=== PATIENT | female | born 1975 | race African-American/Black ===

== ENCOUNTER → 2017-11-11 | Outpatient (CLI) | payer OTHER | END | disposition home or self-care (01) | LOC: KCIC MAMMO 12:42 | DX: Z12.31 Encounter for screening mammogram for malignant neoplasm of breast (principal) | CPT/HCPCS: 77067 ==

== ENCOUNTER → 2018-11-24 | Outpatient (CLI) | payer OTHER ==
--- NOTE | 2018-11-24 15:46 | KCIC ---
Bilateral digital screening mammograms: Reason for examination: Routine screening. Comparison is made to previous study dated 11/11/2017. Interpretation was made with the benefit of CAD. The skin and nipples show no abnormalities. No abnormal axillary lymph nodes are seen. The breast parenchyma is heterogeneously dense. (Breast density: Category C.) There are no dominant masses, suspicious calcifications or architectural distortion. Impression: No evidence of malignancy. Recommend routine screening. Your patient's mammogram demonstrates that she has dense breast tissue (breast density category C or D), which could hide abnormalities, and if she has other risk factors for breast cancer that have been identified, she might benefit from supplemental screening tests that may be suggested by you as her ordering physician. Dense breast tissue, in and of itself, is a relatively common condition. Therefore, this information is not provided to cause undue concern, but rather to raise your awareness and to promote discussion with your patient regarding the presence of other risk factors, in addition to dense breast tissue. Your patient's mammography results will be sent to her. BI-RAD Category 1: Negative. "Our facility is accredited by the [employer]ammography [employer]." This patient's information has been entered into a reminder system for the patient to be notified with the results of her examination and a target date for the next mammogram. Electronically signed by: Jossy Wyman MD (11/24/2018 3:42 PM) [id number]
== END | disposition home or self-care (01) ==
LOC: KCIC MAMMO 11:28
PROVIDERS: ATTEND Obstetrics & Gynecology
DX: Z12.31 Encounter for screening mammogram for malignant neoplasm of breast (principal)
CPT/HCPCS: 77067

== ENCOUNTER → 2019-12-02 | Outpatient (CLI) | payer OTHER ==
--- NOTE | 2019-12-02 10:21 | KCIC ---
Bilateral digital screening mammograms with 3-D tomosynthesis: Reason for examination: Routine screening. Comparison is made to previous studies dated 11/24/2018 and 11/11/2017. Bilateral mammograms in CC and oblique projections were obtained with 2-D imaging and 3-D tomosynthesis imaging on a Siemens Inspiration unit and reviewed on the workstation. Interpretation was made with the benefit of CAD. The skin and nipples show no abnormalities. No abnormal axillary lymph nodes are seen. The breast parenchyma is heterogeneously dense especially in the upper outer quadrants. (Breast density: Category C.) There are no dominant masses, suspicious calcifications or architectural distortion. Impression: No evidence of malignancy. Recommend routine screening. Your patient's mammogram demonstrates that she has dense breast tissue (breast density category C or D), which could hide abnormalities, and if she has other risk factors for breast cancer that have been identified, she might benefit from supplemental screening tests that may be suggested by you as her ordering physician. Dense breast tissue, in and of itself, is a relatively common condition. Therefore, this information is not provided to cause undue concern, but rather to raise your awareness and to promote discussion with your patient regarding the presence of other risk factors, in addition to dense breast tissue. Your patient's mammography results will be sent to her. BI-RAD Category 1: Negative. "Our facility is accredited by the [employer] Mammography [employer]." This patient's information has been entered into a reminder system for the patient to be notified with the results of her examination and a target date for the next mammogram. Electronically signed by: Jossy Wyman MD (12/02/2019 10:18 AM) [id number]
== END | disposition home or self-care (01) ==
LOC: KCIC MAMMO 08:04
PROVIDERS: ATTEND Family Medicine
DX: Z12.31 Encounter for screening mammogram for malignant neoplasm of breast (principal)
CPT/HCPCS: 77063; 77067

== ENCOUNTER → 2020-12-19 | Outpatient (CLI) | payer OTHER ==
--- NOTE | 2020-12-19 13:55 | KCIC ---
Bilateral digital screening mammograms with 3-D tomosynthesis: Reason for examination: Routine screening. Second Covid vaccine 3 days ago in the left arm. Comparison is made to previous studies dated back to 11/11/2017. Bilateral mammograms in CC and oblique projections were obtained with 2-D imaging and 3-D tomosynthes is imaging on a Siemens Inspiration unit and reviewed on the workstation. Interpretation was made wit h the benefit of CAD. The skin and nipples show no abnormalities. No abnormal axillary lymph nodes are seen. The breast par enchyma is heterogeneously dense. (Breast density: Category C.) There is nodularity posterior superio rly 17 cm from the nipple in the left breast on oblique view. This could represent an intramammary ly mph node. There also appears to be a small nodule posterior laterally probably a 4:00 C position of t he left breast approximately 14 cm from the nipple and 7.5 mm in size Further evaluation with ultraso und is recommended. There are no other dominant masses, suspicious calcifications or architectural di stortion. Impression: Nodularity posterior superiorly 17 cm from the nipple in the left breast seen on oblique view. 7.5 mm nodule at the 4:00 C position approximately 14 cm from the nipple in the left breast. Recommend furt her evaluation with ultrasound. Your patient's mammogram demonstrates that she has dense breast tissue (breast density category C or D), which could hide abnormalities, and if she has other risk factors for breast cancer that have bee n identified, she might benefit from supplemental screening tests that may be suggested by you as her ordering physician. Dense breast tissue, in and of itself, is a relatively common condition. Therefo re, this information is not provided to cause undue concern, but rather to raise your awareness and t o promote discussion with your patient regarding the presence of other risk factors, in addition to d ense breast tissue. Your patient's mammography results will be sent to her. BI-RAD Category 0: Incomplete. Needs additional imaging evaluation. "Our facility is accredited by the [employer]amm[employer]." This patient's information has been entered into a reminder system for the patient to be notified wit h the results of her examination and a target date for the next mammogram. Electronically signed by: Jossy Wyman MD (12/19/2020 1:52 PM) [place] [id number]
== END ==
LOC: KCIC MAMMO 08:59
PROVIDERS: ATTEND Family Medicine
DX: Z12.31 Encounter for screening mammogram for malignant neoplasm of breast (principal)
CPT/HCPCS: 77063; 77067

== ENCOUNTER → 2020-12-27 | Outpatient (CLI) | payer OTHER ==
--- NOTE | 2020-12-27 14:01 | KCIC ---
US BREAST LT Clinical Indication: Reason: CALLBACK LT BREAST. Patient recently received second Covid vaccination. Comparison: Bilateral mammogram December 19, 2020 and prior years. TECHNIQUE: Real-time ultrasound imaging of the left breast and axilla is performed. Findings: In the 4:00 position 10 cm from the nipple there is a 7 mm hypoechoic nodule that could be a fibroade noma or complicated cyst or intramammary lymph node. At the 2:00 and 3:00 positions of the breast at posterior depth the tissues are extremely dense and heterogeneous. No solid mass is identified. There are reactive appearing axillary lymph nodes. IMPRESSION: 1. There is a small hypoechoic nodule at the 4:00 position 10 cm from the nipple that probably accou nts for the mammogram finding and may be a fibroadenoma or complicated cyst. 2. There are reactive appearing axillary lymph nodes. 3. Recommend six-month follow-up ultrasound. 4. BI-RADS Category 3, probably benign. Electronically signed by: Louie Ott MD (12/27/2020 1:58 PM) [email or web address]
== END ==
LOC: KCIC US 12:59
PROVIDERS: ATTEND Family Medicine
DX: R92.2 Inconclusive mammogram (principal); N63.23 Unspecified lump in the left breast, lower outer quadrant
CPT/HCPCS: 76641

== ENCOUNTER → 2021-06-27 | Outpatient (CLI) | payer OTHER ==
[2021-02-24 15:04] VITALS: BP 148/84
[~2021-06-27] MED LIST: CITA10TA4 PO; HYDR25TA PO; TRAZ-118 PO
--- NOTE | 2021-06-27 08:51 | KCIC ---
Left breast ultrasound: Reason for examination: Follow-up nodules. Comparison is made to previous ultrasound examination dated 12/27/2020 and previous mammographic exam dated 12/19/2020. At the 1:30 position 17 cm from the nipple, there is a intramammary lymph node measuring approximatel y 8.3 mm in greatest dimension. At the 4:00 position 10 cm from the nipple, there continues to be a s mall 7.9 mm hypoechoic circumscribed lesion in parallel orientation consistent with fibroadenoma whic h shows no significant change. No new cystic or solid nodules are seen. IMPRESSION: Intramammary lymph node at the 1:30 position 17 cm from the nipple. Small nodule probably representing a fibroadenoma at the 4:00 position 10 cm from the nipple. Recommend continued 6 month follow-up for one year stability which can be performed at the time of bi lateral mammograms. BI-RADS Category 3: Probably Benign. "Our facility is accredited by the [employer] Mammography Program." This patient's information has been entered into a reminder system for the patient to be notified wit h the results of her examination and a target date for the next mammogram. Electronically signed by: Jossy Wyman MD (06/27/2021 8:49 AM) [email or web address]
== END ==
LOC: KCIC US 08:01
PROVIDERS: ATTEND Internal Medicine
DX: N63.21 Unspecified lump in the left breast, upper outer quadrant (principal); R92.2 Inconclusive mammogram
CPT/HCPCS: 76641

== ENCOUNTER → 2022-02-06 | Outpatient (CLI) | payer OTHER ==
[2021-02-24 15:04] VITALS: BP 148/84
[~2022-02-06] MED LIST changes: -CITA10TA4 PO; +CITA10TA5 PO
--- NOTE | 2022-02-06 18:29 | KCIC ---
Bilateral diagnostic digital mammograms with 3-D tomosynthesis: Reason for examination: Follow-up nodules. Comparison is made to previous studies dated back to 11/11/2017. Bilateral mammograms in CC and oblique projections were obtained with 2-D imaging and 3-D tomosynthes is imaging on a Siemens Inspiration unit and reviewed on the workstation. Interpretation was made wit h the benefit of CAD. The skin and nipples show no abnormalities. No abnormal axillary lymph nodes are seen. The breast par enchyma is heterogeneously dense. (Breast density: Category C.) There continues to be some nodular as ymmetry posterior superiorly in the left breast on oblique view which is stable. There are no new dom inant masses, suspicious calcifications or architectural distortion. Impression: No evidence of malignancy. Ultrasound to follow. Your patient's mammogram demonstrates that she has dense breast tissue (breast density category C or D), which could hide abnormalities, and if she has other risk factors for breast cancer that have bee n identified, she might benefit from supplemental screening tests that may be suggested by you as her ordering physician. Dense breast tissue, in and of itself, is a relatively common condition. Therefo re, this information is not provided to cause undue concern, but rather to raise your awareness and t o promote discussion with your patient regarding the presence of other risk factors, in addition to d ense breast tissue. Your patient's mammography results will be sent to her. BI-RAD Category 0: Incomplete. Needs additional imaging evaluation. Left breast ultrasound: Comparison is made to previous studies dated 06/27/2021 and 12/27/2020. Ultrasound examination of the left breast and axilla was performed. At the 1:30 position 17 cm from the nipple, there continues to be an intramammary lymph node measurin g approximately 1.3 cm in greatest dimension which corresponds to the area of mammographic concern. A t the 4:00 position 10 cm from the nipple, there continues to be a 7.8 mm hypoechoic circumscribed no dule in parallel orientation which probably represents a fibroadenoma and is unchanged. No other cyst ic or solid nodules are seen. There is some ductal ectasia in the retroareolar position. No abnormal appearing lymph nodes are seen in the axilla. IMPRESSION: Intramammary lymph node at the 1:30 position 17 cm from the nipple. 7.8 mm nodule probably representing a fibroadenoma at the 4:00 position of the left breast and is sta ble. Recommend routine mammographic follow-up. BI-RADS Category 2: Benign. "Our facility is accredited by the [employer]ammography [employer]." This patient's information has been entered into a reminder system for the patient to be notified wit h the results of her examination and a target date for the next mammogram. Electronically signed by: Jossy Wyman MD (02/06/2022 6:26 PM) [email or web address]
== END ==
LOC: KCIC MAMMO 12:50
PROVIDERS: ATTEND Internal Medicine
DX: N63.21 Unspecified lump in the left breast, upper outer quadrant (principal); N63.23 Unspecified lump in the left breast, lower outer quadrant
CPT/HCPCS: 76641; 77066; G0279; 77062